=== PATIENT | female | born 1975 | race Caucasian/White ===

== ENCOUNTER 2024-08-13 15:15 | Outpatient (RCR) | payer OTHER, SELFPAY ==
--- NOTE | 2024-06-26 16:55 | PT.OIE ---
Current Diagnoses Segmental and somatic dysfunction of pelvic region (06/25/24) Unspecified dyspareunia (06/25/24) Pelvic and perineal pain (06/25/24) Visit Care Team Role Provider Type Radha Monaco Attending Provider Non-Staff Referring Provider Specialty: DIRECTOR RETAIL [employer] DEVELOPMENT Address: [address] [place] [address], [id number] Email: Physical Therapy Initial Evaluation PT-OP-A Visit Information Start: 06/25/24 15:18 Freq: Status: Active Protocol: Document 06/25/24 16:29 [facility] (Rec: 06/25/24 16:31 [facility] [id number]) Out-Patient Physical Therapy Visit Information Visit Information Visit Type Treatment Note Visit Start Time 15:15 Visit Stop Time 16:00 Visit Number 1 Evaluation Information Evaluation Date 06/25/24 PT-OP-B Current Condition Start: 06/25/24 15:18 Freq: Status: Active Protocol: Document 06/25/24 15:15 [facility] (Rec: 06/25/24 15:35 [facility] [id number]) Current Condition History of Current Condition Onset Date 2-3 years ago Current Complaints pelvic pain with intercourse History of Current Condition 2-3 years ago pelvic pain with intercourse started and Andree describes pain with penetration and insertion. She has a hx of child 2009 with delivery, gastric bypass October of 2022, vaginal laporoscopy fall and it was found she had adenomyosis. She then underwent a hysterectomy ( uterus only) May 31 2022. She wasn't healing right and had to be cauterized multiple times after this. She was diagnosed with PCOS in 2007 and she was told her testosone was high, she does have hashimotos and takes thyroid meds. Most recently she underwent botox for pelvic floor relaxation on June 11. She has not attempted intercourse yet as she wanted to wait for pelvic floor assessment first. Prior Treatments and Tests botox jun 11 Dr Lupillo Johns, pt has not yet attempted intercourse since having intercourse Treatment Goals Patient/Caregiver Goals Beckys goals include reducing pain with intercourse PT-OP-C Subjective Start: 06/25/24 15:18 Freq: Status: Active Protocol: Document 06/25/24 15:15 [facility] (Rec: 06/25/24 16:59 [facility] [id number]) Patient Questionnaires Pelvic Pain and Urgency/Frequency Patient Symptom Scale Pelvic Pain Score 6 OP-PT Pain Assessment Pain Assessment Grid Paper Pain Assessment Grid Completed Yes Location pelvic floor Pain Location Details with penetration Intensity 9 Scale Used Numeric (0 - 10) PT-OP-I Pelvic Floor Start: 06/25/24 15:18 Freq: Status: Active Protocol: Document 06/25/24 16:53 [facility] (Rec: 06/25/24 16:57 [facility] [id number]) Pelvic Floor Assessment Urine Pelvic Floor Surgery Yes: hysterectomy Other Urinary Symptoms no complaints of urinary symptoms Pelvic Clock Pelvic Clock 3-6 Tightness Pelvic Clock 6-9 Tenderness Contraction Ability Voluntary Contraction Moderate Voluntary Relaxation Moderate Manual Muscle Testing Left 3 Manual Muscle Testing Right 3 Manual Muscle Testing Anterior 3 Manual Muscle Testing Posterior 3 Comments Pelvic Floor Comments tightness found on the left lateral wall from 3-6 on the pelvic clock tenderness right side from 6-9 but no tightness noted full rectum of stool palpated and Andree notes she does have issues with constipation due to her hashimotos PT-OP-Q Treatments Start: 06/25/24 15:18 Freq: Status: Active Protocol: Document 06/25/24 16:29 [facility] (Rec: 06/25/24 16:31 [facility] [id number]) Therapeutic Exercises Supine Exercises happy baby Supine Exercise Name given as a alternative to modified squat stretch Reps/Minutes hold 1-2 minutes modified squat pelvic floor stretch Reps/Minutes hold 1-2 minutes Other Exercises chencho pose Reps/Minutes hold 1-2 minutes Comments cues to relax at the sitting bones Self-Care/Home Management Treatment Education Other Education Phyllis was given three dilators to progress up to for gently stretching the pelvic floor prior to returning to intercourse. PT-OP-T Assessment and Plan Start: 06/25/24 15:18 Freq: Status: Active Protocol: Document 06/25/24 15:15 [facility] (Rec: 06/25/24 16:33 [facility] [id number]) Physical Therapy Assessment Rehab Potential Rehabilitation Potential Excellent Evaluation Complexity Number of Personal Factors/Comorbidities 1-2 Number of Body Systems Impaired 1-2 Clinical Presentation at Evaluation Evolving Impairments Impairments Activity Tolerance,Functional Activities,Pain,Soft Tissue Mobility,Strength,Tone Goals 3 Impairment Andree lacks a home program for pelvic floor relaxation and stretching Long-Term Goal (LTG) Andree is independent with a HEP for pelvic floor relaxation LTG Duration 8 weeks 2 Impairment pelvic floor tension left lateral wall only (following botox) Long-Term Goal (LTG) With stretches and dilator use Andree is able to fully relax the pelvic floor at rest LTG Duration 8 weeks 1 Impairment pt reports dyspareunia and a history of pelvic floor muscle guarding and tension Short Term Goal (STG) Andree is educated on stretches for the pelvic floor and is given dilators to work on stretching STG Duration 4 weeks Foot Worker Goal (LTG) Andree reports a overall reduction in pelvic pain and dyspareunia LTG Duration 8 weeks Assessment Summary Assessment Andree, (Phyllis)is a 49 year old female with chief complaints of dyspareunia that began 2-3 years ago and is progressively getting worse. She has had a hysterectomy due to anenomyosis in 2022 however this did not change her pain. Most recently she undewent botox on June 11 in [place]. Andree has not yet attempted intercourse as she wanted to wait until she was evaluated today to see how her muscles reacted from the botox. With pelvic exam today Andree denies tenderness in the pelvic diaphraghm including transverse perineum and bulbocavernosus. With levator ani assessment of the posterior wall a full rectum of stool is felt. Andree does note she can be prone to consiptation due to hashimotos . We talked about fell bowel evacuation prior to intercourse. She is tender over the right lateral wall of the levator ani however I am not feeling any muscle guarding there. The left lateral wall has some muscle tension present but is not painful. Andree notes exam today was much less painful than exams prior to the botox. Andree is able to contract her pelvic floor. Because she has not attempted intercourse in over a year I gave her 3 sizes of dilators with instructions on use to progress to a large size. She may feel more relaxed being able to insert the dilator her self prior to attempting intercourse. I also educated her on stretches for the pelvic floor today. It appears the botox worked well as there is minimal tightness at this point. She will start with the dilators and stretches and check back in next week. Phyllis is a good candidate for PT Physical Therapy Plan Frequency and Duration Frequency of Treatment 1x/Week Duration of treatment (weeks) 8 Plan of Care Start Date 06/25/24 Plan of Care End Date 08/20/24 Therapeutic Interventions Therapeutic Interventions Home Exercise Program,Manual Therapy,Patient/Caregiver Education,Self-Care/Home Management,Soft Tissue Mobilization,Therapeutic Exercises Next Visit Focus/Plan Next Note Type Treatment Note Next Visit Plan check in with how Andree did with using the dilators and review stretches for the pelvic floor
--- NOTE | 2024-06-30 16:55 | PT.OPPOC ---
Physical, Occupational & Speech Therapy At [facility] Current Diagnoses Segmental and somatic dysfunction of pelvic region (06/25/24) Unspecified dyspareunia (06/25/24) Pelvic and perineal pain (06/25/24) Visit Care Team Role Provider Type Radha Monaco Attending Provider Non-Staff Referring Provider Specialty: SENIOR PROJECT ARCHITECT Address: [address] [place] [address], [id number] Email: Plan Of Care PT-OP-B Current Condition Start: 06/25/24 15:18 Freq: Status: Active Protocol: Document 06/25/24 15:15 [facility] (Rec: 06/25/24 15:35 [facility] [id number]) Current Condition History of Current Condition Onset Date 2-3 years ago Current Complaints pelvic pain with intercourse History of Current Condition 2-3 years ago pelvic pain with intercourse started and Andree describes pain with penetration and insertion. She has a hx of child 2009 with delivery, gastric bypass October of 2022, vaginal laparoscopy fall and it was found she had adenomyosis. She then underwent a hysterectomy ( uterus only) May 31 2022. She wasn't healing right and had to be cauterized multiple times after this. She was diagnosed with PCOS in 2007 and she was told her testosterone was high, she does have hashimotos and takes thyroid meds. Most recently she underwent botox for pelvic floor relaxation on June 11. She has not attempted intercourse yet as she wanted to wait for pelvic floor assessment first. Prior Treatments and Tests botox jun 11 Dr Lupillo Johns, pt has not yet attempted intercourse since having intercourse Treatment Goals Patient/Caregiver Goals Beckys goals include reducing pain with intercourse PT-OP-T Assessment and Plan Start: 06/25/24 15:18 Freq: Status: Active Protocol: Document 06/25/24 15:15 [facility] (Rec: 06/25/24 16:33 [facility] [id number]) Physical Therapy Assessment Rehab Potential Rehabilitation Potential Excellent Evaluation Complexity Number of Personal Factors/Comorbidities 1-2 Number of Body Systems Impaired 1-2 Clinical Presentation at Evaluation Evolving Impairments Impairments Activity Tolerance,Functional Activities,Pain,Soft Tissue Mobility,Strength,Tone Goals 3 Impairment Andree lacks a home program for pelvic floor relaxation and stretching Appraiser Timber Goal (LTG) Andree is independent with a HEP for pelvic floor relaxation LTG Duration 8 weeks 2 Impairment pelvic floor tension left lateral wall only (following botox) Appraiser Timber Goal (LTG) With stretches and dilator use Andree is able to fully relax the pelvic floor at rest LTG Duration 8 weeks 1 Impairment pt reports dyspareunia and a history of pelvic floor muscle guarding and tension Short Term Goal (STG) Andree is educated on stretches for the pelvic floor and is given dilators to work on stretching STG Duration 4 weeks Appraiser Timber Goal (LTG) Andree reports a overall reduction in pelvic pain and dyspareunia LTG Duration 8 weeks Assessment Summary Assessment Andree, (Phyllis)is a 49 year old female with chief complaints of dyspareunia that began 2-3 years ago and is progressively getting worse. She has had a hysterectomy due to anenomyosis in 2022 however this did not change her pain. Most recently she underwent botox on June 11 in [place]. Andree has not yet attempted intercourse as she wanted to wait until she was evaluated today to see how her muscles reacted from the botox. With pelvic exam today Andree denies tenderness in the pelvic diaphraghm including transverse perineum and bulbocavernosus. With levator ani assessment of the posterior wall a full rectum of stool is felt. Andree does note she can be prone to constipation due to hashimotos . We talked about fell bowel evacuation prior to intercourse. She is tender over the right lateral wall of the levator ani however I am not feeling any muscle guarding there. The left lateral wall has some muscle tension present but is not painful. Andree notes exam today was much less painful than exams prior to the botox. Andree is able to contract her pelvic floor. Because she has not attempted intercourse in over a year I gave her 3 sizes of dilators with instructions on use to progress to a large size. She may feel more relaxed being able to insert the dilator her self prior to attempting intercourse. I also educated her on stretches for the pelvic floor today. It appears the botox worked well as there is minimal tightness at this point. She will start with the dilators and stretches and check back in next week. Phyllis is a good candidate for PT Physical Therapy Plan Frequency and Duration Frequency of Treatment 1x/Week Duration of treatment (weeks) 8 Plan of Care Start Date 06/25/24 Plan of Care End Date 08/20/24 Therapeutic Interventions Therapeutic Interventions Home Exercise Program,Manual Therapy,Patient/Caregiver Education,Self-Care/Home Management,Soft Tissue Mobilization,Therapeutic Exercises Next Visit Focus/Plan Next Note Type Treatment Note Next Visit Plan check in with how Andree did with using the dilators and review stretches for the pelvic floor Plan of Care Dates Plan of Care Start Date 06/25/24 Plan of Care End Date 08/20/24 Electronically Signed by: Justine Aguilar, PT 06/30/24 [id number] If you are in agreement with this Plan of Care, please return a signed and dated copy. I have reviewed this Plan of Care and certify that the skilled therapy services above are required to meet the patient?s needs. Physician Signature Date Printed Name and Credentials Clinical Instructor Signature Printed Name and Credentials
--- NOTE | 2024-07-02 15:27 | PT.OTN ---
Current Diagnoses Segmental and somatic dysfunction of pelvic region (07/02/24) Unspecified dyspareunia (07/02/24) Pelvic and perineal pain (07/02/24) Physical Therapy Treatment Note PT-OP-A Visit Information Start: 06/25/24 15:18 Freq: Status: Active Protocol: Document 07/02/24 14:30 [facility] (Rec: 07/02/24 15:27 [facility] [id number]) Out-Patient Physical Therapy Visit Information Visit Information Visit Type Treatment Note PT-OP-B Current Condition Start: 06/25/24 15:18 Freq: Status: Active Protocol: Document 06/25/24 15:15 [facility] (Rec: 06/25/24 15:35 [facility] [id number]) Current Condition History of Current Condition Onset Date 2-3 years ago Current Complaints pelvic pain with intercourse History of Current Condition 2-3 years ago pelvic pain with intercourse started and Andree describes pain with penetration and insertion. She has a hx of child 2009 with delivery, gastric bypass October of 2022, vaginal laporoscopy fall and it was found she had adenomyosis. She then underwent a hysterectomy ( uterus only) May 31 2022. She wasn't healing right and had to be cauterized multiple times after this. She was diagnosed with PCOS in 2007 and she was told her testosone was high, she does have hashimotos and takes thyroid meds. Most recently she underwent botox for pelvic floor relaxation on June 11. She has not attempted intercourse yet as she wanted to wait for pelvic floor assessment first. Prior Treatments and Tests botox jun 11 Dr Lupillo Johns, pt has not yet attempted intercourse since having intercourse Treatment Goals Patient/Caregiver Goals Beckys goals include reducing pain with intercourse PT-OP-C Subjective Start: 06/25/24 15:18 Freq: Status: Active Protocol: Document 07/02/24 14:30 [facility] (Rec: 07/02/24 15:27 [facility] [id number]) OP-PT Subjective Patient Comments Patient Comments has used the small dilator and gotten up to 10 min, towards the very top of the dilator she can feel pressure but not pain. PT-OP-I Pelvic Floor Start: 06/25/24 15:18 Freq: Status: Active Protocol: Document 06/25/24 16:53 [facility] (Rec: 06/25/24 16:57 [facility] [id number]) Pelvic Floor Assessment Urine Pelvic Floor Surgery Yes: hysterectomy Other Urinary Symptoms no complaints of urinary symptoms Pelvic Clock Pelvic Clock 3-6 Tightness Pelvic Clock 6-9 Tenderness Contraction Ability Voluntary Contraction Moderate Voluntary Relaxation Moderate Manual Muscle Testing Left 3 Manual Muscle Testing Right 3 Manual Muscle Testing Anterior 3 Manual Muscle Testing Posterior 3 Comments Pelvic Floor Comments tightness found on the left lateral wall from 3-6 on the pelvic clock tenderness right side from 6-9 but no tightness noted full rectum of stool palpated and Andree notes she does have issues with constipation due to her hashimotos PT-OP-Q Treatments Start: 06/25/24 15:18 Freq: Status: Active Protocol: Document 07/02/24 14:30 [facility] (Rec: 07/02/24 15:27 [facility] [id number]) Therapeutic Exercises Supine Exercises modified squat pelvic floor stretch Reps/Minutes hold 1-2 minutes Other Exercises dynamic hamstring flossing Reps/Minutes x 10 reps modified down dog Other Exercise Name cues to spread at the sitting bones Comments pt cued to keep heels down and okay to bend knees, hinge at the hips chencho pose Reps/Minutes hold 1-2 minutes Comments cues to relax at the sitting bones Self-Care/Home Management Treatment Education Other Education Phyllis was given a handout on positions to try both for intercourse as well as with the dilator. She does report some anterior discomfort and she was advised put the dilator in just as far as is comfortable, she was also given information on the pelvic wand with a curve to be able to self mobilize the lateral lee of the levator ani on the left side PT-OP-T Assessment and Plan Start: 06/25/24 15:18 Freq: Status: Active Protocol: Document 07/02/24 14:30 [facility] (Rec: 07/02/24 15:27 [facility] [id number]) Physical Therapy Assessment Goals 3 Impairment Andree lacks a home program for pelvic floor relaxation and stretching Correction Goal (LTG) Andree is independent with a HEP for pelvic floor relaxation LTG Duration 8 weeks 2 Impairment pelvic floor tension left lateral wall only (following botox) Flamer After Lasting Goal (LTG) With stretches and dilator use Andree is able to fully relax the pelvic floor at rest LTG Duration 8 weeks 1 Impairment pt reports dyspareunia and a history of pelvic floor muscle guarding and tension Short Term Goal (STG) Andree is educated on stretches for the pelvic floor and is given dilators to work on stretching STG Duration 4 weeks Correction Goal (LTG) Andree reports a overall reduction in pelvic pain and dyspareunia LTG Duration 8 weeks Assessment Summary Assessment Phyllis did well with the size small dilator this week and she plans on moving up to the size medium dilator this next week. I did give her a handout on positions she can try for comfort during intimacy as well as sidelying for dilator use to see if the anterior discomfort she feels decreases in sidelying. I added on a couple of pelvic stretches for her as well and she was given handouts Physical Therapy Plan Next Visit Focus/Plan Next Note Type Treatment Note Next Visit Plan review how Andree did with the size medium dilator and go through any questions she has with her stretches. Review sitting positions
--- NOTE | 2024-07-16 16:10 | PT.OTN ---
Current Diagnoses Segmental and somatic dysfunction of pelvic region (07/16/24) Unspecified dyspareunia (07/16/24) Pelvic and perineal pain (07/16/24) Physical Therapy Treatment Note PT-OP-A Visit Information Start: 06/25/24 15:18 Freq: Status: Active Protocol: Document 07/16/24 15:11 [facility] (Rec: 07/16/24 16:09 [facility] [id number]) Out-Patient Physical Therapy Visit Information Visit Information Visit Type Treatment Note Visit Start Time 15:15 Visit Stop Time 16:00 Visit Number 2 PT-OP-B Current Condition Start: 06/25/24 15:18 Freq: Status: Active Protocol: Document 06/25/24 15:15 [facility] (Rec: 06/25/24 15:35 [facility] [id number]) Current Condition History of Current Condition Onset Date 2-3 years ago Current Complaints pelvic pain with intercourse History of Current Condition 2-3 years ago pelvic pain with intercourse started and Andree describes pain with penetration and insertion. She has a hx of child 2009 with delivery, gastric bypass October of 2022, vaginal laporoscopy fall and it was found she had adenomyosis. She then underwent a hysterectomy ( uterus only) May 31 2022. She wasn't healing right and had to be cauterized multiple times after this. She was diagnosed with PCOS in 2007 and she was told her testosone was high, she does have hashimotos and takes thyroid meds. Most recently she underwent botox for pelvic floor relaxation on June 11. She has not attempted intercourse yet as she wanted to wait for pelvic floor assessment first. Prior Treatments and Tests botox jun 11 Dr Lupillo Johns, pt has not yet attempted intercourse since having intercourse Treatment Goals Patient/Caregiver Goals Beckys goals include reducing pain with intercourse PT-OP-C Subjective Start: 06/25/24 15:18 Freq: Status: Active Protocol: Document 07/16/24 15:11 [facility] (Rec: 07/16/24 16:09 [facility] [id number]) OP-PT Subjective Patient Comments Patient Comments pt notes she has been able to move to the size medium dilator and she is wanting to move up the size large PT-OP-I Pelvic Floor Start: 06/25/24 15:18 Freq: Status: Active Protocol: Document 06/25/24 16:53 [facility] (Rec: 06/25/24 16:57 [facility] [id number]) Pelvic Floor Assessment Urine Pelvic Floor Surgery Yes: hysterectomy Other Urinary Symptoms no complaints of urinary symptoms Pelvic Clock Pelvic Clock 3-6 Tightness Pelvic Clock 6-9 Tenderness Contraction Ability Voluntary Contraction Moderate Voluntary Relaxation Moderate Manual Muscle Testing Left 3 Manual Muscle Testing Right 3 Manual Muscle Testing Anterior 3 Manual Muscle Testing Posterior 3 Comments Pelvic Floor Comments tightness found on the left lateral wall from 3-6 on the pelvic clock tenderness right side from 6-9 but no tightness noted full rectum of stool palpated and Andree notes she does have issues with constipation due to her hashimotos PT-OP-Q Treatments Start: 06/25/24 15:18 Freq: Status: Active Protocol: Document 07/16/24 15:11 [facility] (Rec: 07/16/24 16:09 [facility] [id number]) Therapeutic Exercises Supine Exercises hooklying hip ER with TB Equipment Used level 3 TB Reps/Minutes x 10 reps supine ball squeeze Reps/Minutes x 10 reps pelvic floor contract relax Reps/Minutes 5 reps holding 10 sec then relaxing 10 sec Self-Care/Home Management Treatment Education Patient Education Pain Management Other Education discussed as she works up to the size large to have her work on putting the dilator in for her, instructions on using the xs dilator for gentle stretching of the vaginal wall handouts given of hip ER and adduction contract/relax PT-OP-T Assessment and Plan Start: 06/25/24 15:18 Freq: Status: Active Protocol: Document 07/16/24 15:11 [facility] (Rec: 07/16/24 16:09 [facility] [id number]) Physical Therapy Assessment Assessment Summary Assessment worked on pelvic floor contract/relax relax today with EMG biofeedback and Phyllis was able to relax further after a contraction. She started around 2.5 uv and got as low as 1.5 We also working on adductor contract relax and hooklying clam with therabankirby overall her resting tone was lower following the contract relax, she will continue to work on progressing to the size large dilator and work on her stretches. Biofeedback allowed her to visualize when she was relaxed in her pelvic floor. Physical Therapy Plan Frequency and Duration Frequency of Treatment 1x/Week Duration of treatment (weeks) 8 Plan of Care Start Date 06/25/24 Plan of Care End Date 08/20/24 Next Visit Focus/Plan Next Note Type Treatment Note Next Visit Plan review how Phyllis did with size large dilator, contract relax , adductor contract relax and hip abduction.
--- NOTE | 2024-08-04 16:08 | PT.OTN ---
Current Diagnoses Segmental and somatic dysfunction of pelvic region (08/04/24) Unspecified dyspareunia (08/04/24) Pelvic and perineal pain (08/04/24) Physical Therapy Treatment Note PT-OP-A Visit Information Start: 06/25/24 15:18 Freq: Status: Active Protocol: Document 08/04/24 16:08 [facility] (Rec: 08/04/24 16:08 [facility] [id number]) Out-Patient Physical Therapy Visit Information Visit Information Visit Type Treatment Note Visit Start Time 15:15 Visit Stop Time 16:00 Visit Number 3 PT-OP-B Current Condition Start: 06/25/24 15:18 Freq: Status: Active Protocol: Document 06/25/24 15:15 [facility] (Rec: 06/25/24 15:35 [facility] [id number]) Current Condition History of Current Condition Onset Date 2-3 years ago Current Complaints pelvic pain with intercourse History of Current Condition 2-3 years ago pelvic pain with intercourse started and Andree describes pain with penetration and insertion. She has a hx of child 2009 with delivery, gastric bypass October of 2022, vaginal laporoscopy fall and it was found she had adenomyosis. She then underwent a hysterectomy ( uterus only) May 31 2022. She wasn't healing right and had to be cauterized multiple times after this. She was diagnosed with PCOS in 2007 and she was told her testosone was high, she does have hashimotos and takes thyroid meds. Most recently she underwent botox for pelvic floor relaxation on June 11. She has not attempted intercourse yet as she wanted to wait for pelvic floor assessment first. Prior Treatments and Tests botox jun 11 Dr Lupillo Johns, pt has not yet attempted intercourse since having intercourse Treatment Goals Patient/Caregiver Goals Beckys goals include reducing pain with intercourse PT-OP-C Subjective Start: 06/25/24 15:18 Freq: Status: Active Protocol: Document 08/04/24 15:20 [facility] (Rec: 08/04/24 16:08 [facility] [id number]) OP-PT Subjective Patient Comments Patient Comments Pt notes she has been able to use the large dilator, she does have some burning with the size large but it did after approx 20 sec to 1 min pt does have vaginal estrogen PT-OP-I Pelvic Floor Start: 06/25/24 15:18 Freq: Status: Active Protocol: Document 06/25/24 16:53 [facility] (Rec: 06/25/24 16:57 [facility] [id number]) Pelvic Floor Assessment Urine Pelvic Floor Surgery Yes: hysterectomy Other Urinary Symptoms no complaints of urinary symptoms Pelvic Clock Pelvic Clock 3-6 Tightness Pelvic Clock 6-9 Tenderness Contraction Ability Voluntary Contraction Moderate Voluntary Relaxation Moderate Manual Muscle Testing Left 3 Manual Muscle Testing Right 3 Manual Muscle Testing Anterior 3 Manual Muscle Testing Posterior 3 Comments Pelvic Floor Comments tightness found on the left lateral wall from 3-6 on the pelvic clock tenderness right side from 6-9 but no tightness noted full rectum of stool palpated and Andree notes she does have issues with constipation due to her hashimotos PT-OP-Q Treatments Start: 06/25/24 15:18 Freq: Status: Active Protocol: Document 08/04/24 15:20 [facility] (Rec: 08/04/24 16:08 [facility] [id number]) Therapeutic Exercises Supine Exercises hooklying hip ER with TB Equipment Used level 3 TB Reps/Minutes x 10 reps supine ball squeeze Comments resting tone lower after contract relax with the ball pelvic floor contract relax Reps/Minutes 5 reps holding 10 sec then relaxing 10 sec Comments 12.2 and 21.5 uv max Manual Therapy Treatment Consent Patient gave verbal consent for manual Yes treatment Soft Tissue Mobilization MFR of the left lateral wall of the levator ani Comments worked on contract relax of the left lateral wall of the levator ani, no pain and Phyllis is showing good ability to fully relax the pelvic floor. I did not feel any pelvic tension PT-OP-T Assessment and Plan Start: 06/25/24 15:18 Freq: Status: Active Protocol: Document 08/04/24 15:20 [facility] (Rec: 08/04/24 16:08 [facility] [id number]) Physical Therapy Assessment Goals 3 Impairment Andree lacks a home program for pelvic floor relaxation and stretching Skilled Nursing Goal (LTG) Andree is independent with a HEP for pelvic floor relaxation LTG Duration 8 weeks 2 Impairment pelvic floor tension left lateral wall only (following botox) Skilled Nursing Goal (LTG) With stretches and dilator use Andree is able to fully relax the pelvic floor at rest LTG Duration 8 weeks 1 Impairment pt reports dyspareunia and a history of pelvic floor muscle guarding and tension Short Term Goal (STG) Andree is educated on stretches for the pelvic floor and is given dilators to work on stretching STG Duration 4 weeks Financial Brokers Goal (LTG) Andree reports a overall reduction in pelvic pain and dyspareunia LTG Duration 8 weeks Assessment Summary Assessment Phyllis has been able to move up to size large dilator. She does note some burning with the stretch but notes it goes away withing 20 sec to 1 min. She does have estrogen cream so I did recommend she use this vaginally to help as well . She is working on all her stretches and was able to relax to 2 and below on EMG biofeedback. We talked about sidelying a a position to start with to decrease depth of penetration. She plans on trying intercourse with her and will return to PT on 08/13/24 Physical Therapy Plan Frequency and Duration Frequency of Treatment 1x/Week Duration of treatment (weeks) 8 Plan of Care Start Date 06/25/24 Plan of Care End Date 08/20/24 Next Visit Focus/Plan Next Note Type Treatment Note Next Visit Plan check in with how Phyllis did with sidelying intercourse and if she experienced any pain, review all established stretches,exercises
--- NOTE | 2024-08-13 16:24 | PT.OTN ---
Current Diagnoses Segmental and somatic dysfunction of pelvic region (08/13/24) Unspecified dyspareunia (08/13/24) Pelvic and perineal pain (08/13/24) Physical Therapy Treatment Note PT-OP-A Visit Information Start: 06/25/24 15:18 Freq: Status: Active Protocol: Document 08/13/24 15:15 [facility] (Rec: 08/13/24 16:22 [facility] [id number]) Out-Patient Physical Therapy Visit Information Visit Information Visit Type Treatment Note Visit Start Time 15:15 Visit Stop Time 16:00 Visit Number 4 PT-OP-B Current Condition Start: 06/25/24 15:18 Freq: Status: Active Protocol: Document 06/25/24 15:15 [facility] (Rec: 06/25/24 15:35 [facility] [id number]) Current Condition History of Current Condition Onset Date 2-3 years ago Current Complaints pelvic pain with intercourse History of Current Condition 2-3 years ago pelvic pain with intercourse started and Andree describes pain with penetration and insertion. She has a hx of child 2009 with delivery, gastric bypass October of 2022, vaginal laporoscopy fall and it was found she had adenomyosis. She then underwent a hysterectomy ( uterus only) May 31 2022. She wasn't healing right and had to be cauterized multiple times after this. She was diagnosed with PCOS in 2007 and she was told her testosone was high, she does have hashimotos and takes thyroid meds. Most recently she underwent botox for pelvic floor relaxation on June 11. She has not attempted intercourse yet as she wanted to wait for pelvic floor assessment first. Prior Treatments and Tests botox jun 11 Dr Lupillo Johns, pt has not yet attempted intercourse since having intercourse Treatment Goals Patient/Caregiver Goals Beckys goals include reducing pain with intercourse PT-OP-C Subjective Start: 06/25/24 15:18 Freq: Status: Active Protocol: Document 08/13/24 15:15 [facility] (Rec: 08/13/24 16:22 [facility] [id number]) OP-PT Subjective Patient Comments Patient Comments Andree notes she was able to have intercourse with her and had no pain during or afterwards PT-OP-I Pelvic Floor Start: 06/25/24 15:18 Freq: Status: Active Protocol: Document 06/25/24 16:53 [facility] (Rec: 06/25/24 16:57 [facility] [id number]) Pelvic Floor Assessment Urine Pelvic Floor Surgery Yes: hysterectomy Other Urinary Symptoms no complaints of urinary symptoms Pelvic Clock Pelvic Clock 3-6 Tightness Pelvic Clock 6-9 Tenderness Contraction Ability Voluntary Contraction Moderate Voluntary Relaxation Moderate Manual Muscle Testing Left 3 Manual Muscle Testing Right 3 Manual Muscle Testing Anterior 3 Manual Muscle Testing Posterior 3 Comments Pelvic Floor Comments tightness found on the left lateral wall from 3-6 on the pelvic clock tenderness right side from 6-9 but no tightness noted full rectum of stool palpated and Andree notes she does have issues with constipation due to her hashimotos PT-OP-Q Treatments Start: 06/25/24 15:18 Freq: Status: Active Protocol: Document 08/13/24 15:15 [facility] (Rec: 08/13/24 16:22 [facility] [id number]) Therapeutic Exercises Supine Exercises hooklying hip ER with TB Equipment Used level 3 TB Reps/Minutes x 10 reps supine ball squeeze Reps/Minutes x 10 reps pelvic floor contract relax Reps/Minutes 5 reps holding 10 sec then relaxing 10 sec Comments 16.9 and max 34.1 happy baby Supine Exercise Name given as a alternative to modified squat stretch Reps/Minutes hold 1-2 minutes modified squat pelvic floor stretch Reps/Minutes hold 1-2 minutes Other Exercises dynamic hamstring flossing Reps/Minutes x 10 reps modified down dog Other Exercise Name cues to spread at the sitting bones Comments pt cued to keep heels down and okay to bend knees, hinge at the hips chencho pose Reps/Minutes hold 1-2 minutes Comments cues to relax at the sitting bones PT-OP-T Assessment and Plan Start: 06/25/24 15:18 Freq: Status: Active Protocol: Document 08/13/24 15:15 [facility] (Rec: 08/13/24 16:22 [facility] [id number]) Physical Therapy Assessment Goals 3 Impairment Andree lacks a home program for pelvic floor relaxation and stretching Lab Analyst Goal (LTG) Andree is independent with a HEP for pelvic floor relaxation goal met LTG Duration 8 weeks 2 Impairment pelvic floor tension left lateral wall only (following botox) Lab Analyst Goal (LTG) With stretches and dilator use Andree is able to fully relax the pelvic floor at rest excellent progress, today after having intercourse yesterday she demonstrated elevated tone on EMG biofeedback. After hip stretches and pelvic floor stretches she was able to relax her pelvic floor. Prior to intercourse she was resting to baseline LTG Duration 8 weeks 1 Impairment pt reports dyspareunia and a history of pelvic floor muscle guarding and tension Short Term Goal (STG) Andree is educated on stretches for the pelvic floor and is given dilators to work on stretching goal met STG Duration 4 weeks Assisted Goal (LTG) Andree reports a overall reduction in pelvic pain and dyspareunia goal met LTG Duration 8 weeks Assessment Summary Assessment Phyllis has made great overall progress with PT and her home program of dilator use and stretches. She was able to have intercourse with her and notes no pain during and afterwards. She returned to PT one day after attempting intercourse without any pain. She did demonstrated some elevated tone on EMG biofeedback but after stretches this was decreased. I encouraged Andree to continue with her dilators and stretches as she gradually returns to more regular intercourse with her . At this time she is feeling independent with her home program however she would like to extend her plan of care incase she needs any further treatment in the next few months. I will extend her plan and if she continues to do well then we will discharge her to a HEP Physical Therapy Plan Frequency and Duration Frequency of Treatment Every Other Week Duration of treatment (weeks) 12 Plan of Care Start Date 08/13/24 Plan of Care End Date 11/05/24 Therapeutic Interventions Therapeutic Interventions Home Exercise Program,Manual Therapy,Patient/Caregiver Education,Self-Care/Home Management,Soft Tissue Mobilization,Therapeutic Exercises Next Visit Focus/Plan Next Note Type Treatment Note Next Visit Plan if Phyllis needs any further treatment pelvic floor tone will be reassessed
--- NOTE | 2024-08-13 16:26 | PT.OPPOC ---
Physical, Occupational & Speech Therapy At 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 She has a hx of child 2009 with delivery, gastric bypass October of 2022, vaginal laporoscopy fall and it was found she had adenomyosis. She then underwent a hysterectomy ( uterus only) May 31 2022. She wasn't healing right and had to be cauterized multiple times after this. She was diagnosed with PCOS in 2007 and she was told her testosone was high, she does have hashimotos and takes thyroid meds. Most recently she underwent botox for pelvic floor relaxation on June 11. She has not attempted intercourse yet as she wanted to wait for pelvic floor assessment first. Prior Treatments and Tests botox jun 11 Dr Lupillo Johns, pt has not yet attempted intercourse since having intercourse Treatment Goals Patient/Caregiver Goals Beckys goals include reducing pain with intercourse PT-OP-T Assessment and Plan Start: 06/25/24 15:18 Freq: Status: Active Protocol: Document 08/13/24 15:15 [facility] (Rec: 08/13/24 16:22 [facility] [id number]) Physical Therapy Assessment Goals 3 Impairment Andree lacks a home program for pelvic floor relaxation and stretching Mat Gauger Goal (LTG) Andree is independent with a HEP for pelvic floor relaxation goal met LTG Duration 8 weeks 2 Impairment pelvic floor tension left lateral wall only (following botox) Mat Gauger Goal (LTG) With stretches and dilator use Andree is able to fully relax the pelvic floor at rest excellent progress, today after having intercourse yesterday she demonstrated elevated tone on EMG biofeedback. After hip stretches and pelvic floor stretches she was able to relax her pelvic floor. Prior to intercourse she was resting to baseline LTG Duration 8 weeks 1 Impairment pt reports dyspareunia and a history of pelvic floor muscle guarding and tension Short Term Goal (STG) Andree is educated on stretches for the pelvic floor and is given dilators to work on stretching goal met STG Duration 4 weeks Mat Gauger Goal (LTG) Andree reports a overall reduction in pelvic pain and dyspareunia goal met LTG Duration 8 weeks Assessment Summary Assessment Phyllis has made great overall progress with PT and her home program of dilator use and stretches. She was able to have intercourse with her and notes no pain during and afterwards. She returned to PT one day after attempting intercourse without any pain. She did demonstrated some elevated tone on EMG biofeedback but after stretches this was decreased. I encouraged Andree to continue with her dilators and stretches as she gradually returns to more regular intercourse with her . At this time she is feeling independent with her home program however she would like to extend her plan of care incase she needs any further treatment in the next few months. I will extend her plan and if she continues to do well then we will discharge her to a [facility] Physical Therapy Plan Frequency and Duration Frequency of Treatment Every Other Week Duration of treatment (weeks) 12 Plan of Care Start Date 08/13/24 Plan of Care End Date 11/05/24 Therapeutic Interventions Therapeutic Interventions Home Exercise Program,Manual Therapy,Patient/Caregiver Education,Self-Care/Home Management,Soft Tissue Mobilization,Therapeutic Exercises Next Visit Focus/Plan Next Note Type Treatment Note Next Visit Plan if Phyllis needs any further treatment pelvic floor tone will be reassessed Plan of Care Dates Plan of Care Start Date 08/13/24 Plan of Care End Date 11/05/24 Electronically Signed by: Justine Aguilar, PT 08/13/24 [id number] If you are in agreement with this Plan of Care, please return a signed and dated copy. I have reviewed this Plan of Care and certify that the skilled therapy services above are required to meet the patient?s needs. Physician Signature Date Printed Name and Credentials Clinical Instructor Signature Printed Name and Credentials
--- NOTE | 2025-05-26 08:43 | PT.OPDS ---
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 Address: [address] [place] [address], [id number] Email: Visit Number Visit Number 4 Discharge Summary PT-OP-A Visit Information Start: 06/25/24 15:18 Freq: Status: Active Protocol: Document 08/13/24 15:15 [facility] (Rec: 08/13/24 16:22 [facility] [id number]) Out-Patient Physical Therapy Visit Information Visit Information Visit Type Treatment Note Visit Start Time 15:15 Visit Stop Time 16:00 Visit Number 4 PT-OP-B Current Condition Start: 06/25/24 15:18 Freq: Status: Active Protocol: Document 06/25/24 15:15 [facility] (Rec: 06/25/24 15:35 [facility] [id number]) Current Condition History of Current Condition Onset Date 2-3 years ago Current Complaints pelvic pain with intercourse History of Current 2-3 years ago pelvic pain with intercourse started and Condition Andree describes pain with penetration and insertion. She has a hx of child 2009 with delivery, gastric bypass October of 2022, vaginal laporoscopy fall and it was found she had adenomyosis. She then underwent a hysterectomy ( uterus only) May 31 2022. She wasn't healing right and had to be cauterized multiple times after this. She was diagnosed with PCOS in 2007 and she was told her testosone was high, she does have hashimotos and takes thyroid meds. Most recently she underwent botox for pelvic floor relaxation on June 11. She has not attempted intercourse yet as she wanted to wait for pelvic floor assessment first. Prior Treatments and botox jun 11 Dr Lupillo Johns, pt has not yet Tests attempted intercourse since having intercourse Treatment Goals Patient/Caregiver Beckys goals include reducing pain with intercourse Goals PT-OP-C Subjective Start: 06/25/24 15:18 Freq: Status: Active Protocol: Document 08/13/24 15:15 [facility] (Rec: 08/13/24 16:22 [facility] [id number]) OP-PT Subjective Patient Comments Patient Comments Andree notes she was able to have intercourse with her and had no pain during or afterwards PT-OP-I Pelvic Floor Start: 06/25/24 15:18 Freq: Status: Active Protocol: Document 06/25/24 16:53 [facility] (Rec: 06/25/24 16:57 [facility] [id number]) Pelvic Floor Assessment Urine Pelvic Floor Surgery Yes: hysterectomy Other Urinary no complaints of urinary symptoms Symptoms Pelvic Clock Pelvic Clock 3-6 Tightness Pelvic Clock 6-9 Tenderness Contraction Ability Voluntary Moderate Contraction Voluntary Relaxation Moderate Manual Muscle 3 Testing Left Manual Muscle 3 Testing Right Manual Muscle 3 Testing Anterior Manual Muscle 3 Testing Posterior Comments Pelvic Floor tightness found on the left lateral wall from 3-6 on Comments the pelvic clock tenderness right side from 6-9 but no tightness noted full rectum of stool palpated and Andree notes she does have issues with constipation due to her hashimotos PT-OP-T Assessment and Plan Start: 06/25/24 15:18 Freq: Status: Active Protocol: Document 05/26/25 08:41 [facility] (Rec: 05/26/25 08:42 [facility] [id number]) Physical Therapy Assessment Goals 3 Impairment Andree lacks a home program for pelvic floor relaxation and stretching Skilled Nursing Goal (LTG) Andree is independent with a HEP for pelvic floor relaxation goal met LTG Duration 8 weeks 2 Impairment pelvic floor tension left lateral wall only (following botox) Lime Boiler Goal (LTG) With stretches and dilator use Andree is able to fully relax the pelvic floor at rest excellent progress, today after having intercourse yesterday she demonstrated elevated tone on EMG biofeedback. After hip stretches and pelvic floor stretches she was able to relax her pelvic floor. Prior to intercourse she was resting to baseline LTG Duration 8 weeks 1 Impairment pt reports dyspareunia and a history of pelvic floor muscle guarding and tension Short Term Goal (STG Andree is educated on stretches for the pelvic floor ) and is given dilators to work on stretching goal met STG Duration 4 weeks Skilled Nursing Goal (LTG) Andree reports a overall reduction in pelvic pain and dyspareunia goal met LTG Duration 8 weeks Assessment Summary Assessment Phyllis has made great overall progress with PT and her home program of dilator use and stretches. She was able to have intercourse with her and notes no pain during and afterwards. She returned to PT one day after attempting intercourse without any pain. She did demonstrated some elevated tone on EMG biofeedback but after stretches this was decreased. I encouraged Andree to continue with her dilators and stretches as she gradually returns to more regular intercourse with her . At this time she is feeling independent with her home program. She will be DC from PT at this time Physical Therapy Plan Discharge Physical Therapy Discharge Reasons Goals Met
== END 2025-05-26 10:55 | disposition home or self-care (01) ==
LOC: PHYS 15:15
PROVIDERS: Referring Provider Obstetrics & Gynecology; Visit Provider Obstetrics & Gynecology
DX: N94.10 Unspecified dyspareunia (principal); R10.2 Pelvic and perineal pain; M99.05 Segmental and somatic dysfunction of pelvic region
CPT/HCPCS: 97110; 97163; 97535